=== PATIENT | male | born 1985 | race Caucasian/White ===

== ENCOUNTER 2020-12-05 13:01 | Emergency (ER) | payer OTHER, SELFPAY ==
[2020-12-05] VITALS (15 sets, daily range): BP systolic 134–159; BP diastolic 74–105; PULSE 84–125; RESP 12–20; TEMP 36.8; O2SAT 97–100
--- NOTE | ~2020-12-05 | XR_ITS ---
EXAMINATION: XR chest 2V DATE: 12/05/2020 15:56 INDICATION: Dizziness and shortness of breath TECHNIQUE: PA and lateral views of the chest are obtained. COMPARISON: None available FINDINGS: The lungs are free of acute opacities. There is no pleural effusion or pneumothorax. The ca rdiomediastinal silhouette is normal. The visualized bones and soft tissues are unremarkable. IMPRESSION: 1. No acute cardiopulmonary abnormality. Reviewed, dictated and finalized at location A. [facility] [employer]
--- NOTE | 2020-12-05 13:34 | ECG_ITS ---
Measurements Intervals [place] Rate: 116 P: 71 MI: 147 QRS: -28 QRSD: 93 T: 47 QT: 304 QTc: 422 Interpretive Statements SINUS TACHYCARDIA POSSIBLE LEFT ATRIAL ENLARGEMENT BORDERLINE R WAVE PROGRESSION, ANTERIOR LEADS ABNORMAL ECG Electronically Signed On 12-05-2020 14:02:03 [employer] SPECIALIST by Kimo Morfin D.O.
[2020-12-05 14:08] LABS: Basophils Percent Auto 0.4 % (0.2-1.2); Hematocrit 47.9 % (42.0-52.0); Hemoglobin 16.9 g/dL (14.0-18.0); Immature Granulocyte Absolute 0.03 K/mm3 (0.00-0.031); Immature Granulocyte Percent A 0.3 % (0-0.5); Lymphocytes Absolute Auto 0.76 K/mm3 (0.9-3.2); Lymphocytes Percent Auto 7.7 % (18.3-44.2); Mean Corpuscular HGB Conc 35.3 g/dl (32-36); Mean Corpuscular Hemoglobin 32.8 pg (26-34); Mean Corpuscular Volume 92.8 fl (80-100); Mean Platelet Volume 10.2 fl (7.4-10.4); Monocytes Absolute Auto 0.6 K/mm3 (0.1-0.6); Neutrophils Absolute Auto 8.5 K/mm3 (1.3-6.7); Neutrophils Percent Auto 85.6 % (45.5-73.1); Platelet Count Result 244 k/mm3 (150-375); Red Blood Count 5.16 M/mm3 (4.6-6.20); Red Cell Distribution Width 12.9 % (11.5-14.5); White Blood Count 9.9 K/mm3 (4.5-10.0)
[2020-12-05 14:18] LABS: Anion Gap 16 mmol/L (8-16); Blood Urea Nitrogen 16 mg/dL (9-20); Calcium 9.9 mg/dL (8.4-10.2); Carbon Dioxide 23 mmol/L (22-30); Chloride 101 mmol/L (98-107); Estimated CRCL calculation 88 ml/min; Estimated Glomerular Filt Rate > 60; Glucose 89 mg/dL (75-110); Potassium 4.2 mmol/L (3.4-5.0); Sodium 140 mmol/L (137-145)
--- NOTE | 2020-12-05 14:50 | PC.NURSE ---
NAD, lounging in waiting room with relaxed posture using cell phone. Breathing and skin signs wnl. Aware labs wnl.
--- NOTE | 2020-12-05 15:39 | ED.SYNCOPE ---
HPI - Syncope General Chief Complaint: Syncope Stated Complaint: anxiety Time Seen by Provider: 12/05/20 15:24 Source: patient and family Mode of arrival: EMS Limitations: no limitations History of Present Illness HPI narrative: This is a 35 year old male that presents to the ER for sudden onset shortness of breath. Reports he was driving today and started to feel like he couldn't catch his breath. Associated with feeling of palpitations, tingling in his face and extremities, and then his hands cramping up. Reports he called EMS and while they were they he had a syncopal episode. Reports he hit his head on the car. Denies fever, chest pain, vision changes, vomiting, numbness or weakness. Related Data Home Medications Medication Instructions Recorded Confirmed Metamucil 6 tablet DAILY 12/05/20 12/05/20 Allergies Allergy/AdvReac Type Severity Reaction Status Date / Time karen Allergy Anaphylaxis Verified 12/05/20 16:04 Review of Systems Review of Systems: Narrative: CONSTITUTIONAL: Denies fever EYES: Denies visual changes CARDIOVASCULAR: Reports palpitations. Denies chest pain, or edema. RESPIRATORY: Reports dyspnea. Denies cough GASTROINTESTINAL: Denies vomiting PSYCHIATRIC: Reports anxiety All systems reviewed & are unremarkable except as noted in HPI and below PMFSH Past Medical History Medical History (Updated 12/05/20 @ 18:44 by Sara Kamara PA-C) History of anxiety Social History Social History (Updated 12/05/20 @ 15:45 by Sara Kamara PA-C) Substance use: never Gender identity (if verbalized by the patient): Male Exam Narrative: Exam Narrative: GENERAL: Well-appearing, well-nourished, anxious HEAD: Normocephalic, atraumatic. EYES: PERRLA and EOMI. ENT: Nares clear, no rhinorrhea or epistaxis. Mucous membranes moist. Oropharynx without tonsillar hypertrophy exudate or other lesions. Bilateral TMs pearly mccartney non-bulging NECK: Supple. No adenopathy or masses. No carotid bruits or JVD. No midline spinal tenderness CHEST: Clear to auscultation. No respiratory distress. No wheezes rales or rhonchi HEART: Regular rate and rhythm. No murmur heard. Normal peripheral pulses. EXTREMITIES: Normal range of motion. No edema. SKIN: Warm, dry, no rash. NEURO: No focal deficits. Alert and oriented x3. Cranial nerves II through XII grossly intact PSYCH: Anxious, tearful Course Vital Signs Vital signs: Vital Signs Temperature 98.2 F 12/05/20 13:29 Pulse Rate 125 H 12/05/20 13:29 Respiratory Rate 20 12/05/20 13:29 Blood Pressure 159/97 H 12/05/20 13:29 Pulse Oximetry 98 12/05/20 13:29 Temperature 98.2 F 12/05/20 13:29 Pulse Rate 104 H 12/05/20 16:56 Respiratory Rate 13 12/05/20 16:46 Blood Pressure 134/83 12/05/20 16:56 Pulse Oximetry 99 12/05/20 16:46 MDM - Syncope MDM Narrative Medical decision making narrative: Patient presents to the emergency department for what sounds like an anxiety attack. Was reporting sudden onset feeling of not being able to catch his breath. Associated with paresthesias in his hands and face. Was also reporting feeling of his heart pounding out of his chest. Does have history of anxiety, was tapered off of his anxiety medication at the end of last year. Also reported a syncopal episode today. Brant syncope risk score makes him low risk. He is afebrile and nontoxic-appearing. He is neurologically intact. CBC and metabolic panel without concerning findings. EKG without concerning changes and baseline troponin is negative. D-dimer is not elevated. Chest x-ray is without acute cardiopulmonary abnormalities. Patient did appear to be mildly orthostatic, so was hydrated with IV fluids in the ED. Was given dose of Ativan with improvement in his symptoms. He is stable and felt appropriate for further outpatient valuation. He was given warnings to return to the ER Lab Data Attestation: I reviewed the patient's lab results. Result
[2020-12-05 16:01] LABS: INR 0.9; Prothrombin Time 12.6 Seconds (11.1-14.7)
[2020-12-05 16:02] LABS: Partial Thromboplastin Time 22.4 SECONDS (22.3-36.8)
[2020-12-05 16:08] LABS: Troponin I < 0.012 ng/mL (0.000-0.034)
[2020-12-05] MEDS: SODIUM CHLORIDE 0.9% IV 1,000 ML 999 ML IV CONT ×2 (16:09→17:44)
[2020-12-05] MEDS: LORazepam INJ (*CRX) 2 MG/ML VIAL 0.5 MG IV PUSH (16:09)
[2020-12-05 17:17] LABS: D Dimer 0.27 ug/mL (<0.48)
[2020-12-05 17:25] LABS: NT Pro B Type Natriuretic Pept 15 PG/ML (5-100)
== END 2020-12-05 19:00 | disposition home or self-care (01) ==
PROVIDERS: Physician Assistant; Emergency Provider Emergency Medicine; PCP Family Medicine
DX: I95.1 Orthostatic hypotension (principal)
CPT/HCPCS: 36415; 71046; 80048; 83880; 84484; 85025; 85380; 85610; 85730; 93005; 96361; 96374; 99284; J2060; J7030